=== PATIENT | female | born 1935 | race Caucasian/White ===

== ENCOUNTER 2019-12-07 11:34 | Inpatient (IN) | payer OTHER, SELFPAY ==
[~2019-12-07] VITALS: Ht 160 cm; Wt 71.7 kg
[2019-12-07 11:42] VITALS: BP_SYST 124
[2019-12-07] MEDS ORDERED: ACET-73 PO (11:49)
[2019-12-07] MEDS ORDERED: OMEG-133 PO (11:49)
[2019-12-07] MEDS ORDERED: [UNRECOGNIZED DRUG - CODE] PO (11:49)
[2019-12-07] MEDS ORDERED: [UNRECOGNIZED DRUG - CODE] PO (11:49)
[2019-12-07] MEDS ORDERED: ZINC220T4 PO (11:49)
[2019-12-07] MEDS ORDERED: DONE10TA44 PO (11:49)
[2019-12-07] MEDS ORDERED: ESCI10TA PO (11:49)
[2019-12-07] MEDS ORDERED: MULT1TAB64 PO (11:49)
[2019-12-07] MEDS ORDERED: FAMO1TAB29 PO (11:49)
[2019-12-07] MEDS ORDERED: ROSU20TA2 PO (11:49)
[2019-12-07] MEDS ORDERED: LEVO25TA7 PO (11:49)
[2019-12-07] MEDS ORDERED: MEMA10TA PO (11:49)
[2019-12-07 12:16] LABS: BASOPHILS % (AUTO) 0.2 % (0.0-2.0); HEMATOCRIT 39.4 % (36-48); HEMOGLOBIN 13.2 g/dL (12.0-16.0); LYMPHOCYTES # (AUTO) 0.7 K/uL (1.0-5.5); LYMPHOCYTES % (AUTO) 9.5 % (20.5-51.5); MEAN CORPUSCULAR HEMOGLOBIN 29 pg (27-31); MEAN CORPUSCULAR HGB CONC 33 % (32-36); MEAN CORPUSCULAR VOLUME 85 fL (79.0-98.0); MONOCYTES # (AUTO) 0.2 K/uL (0.0-1.0); MONOCYTES % (AUTO) 3.1 % (1.7-9.3); NEUTROPHILS # (AUTO) 6.6 K/uL (1.8-7.7); NEUTROPHILS % (AUTO) 87.2 % (40.0-70.0); PLATELET COUNT (AUTO) 356 K/uL (130-430); RED BLOOD CELL COUNT(AUTO) 4.62 MIL/uL (4.2-6.2); RED CELL DISTRIBUTION WIDTH 14.7 % (9.0-15.0); WHITE BLOOD COUNT (AUTO) 7.6 K/uL (4.8-10.8)
[2019-12-07 12:23] LABS: ANION GAP 14 (5-15); CALCIUM 8.5 mg/dL (8.4-11.0); CHLORIDE 98 mmol/L (98-107); CREATININE 1.19 mg/dL (0.55-1.30); GLUCOSE 113 mg/dL (70-99); SODIUM SERUM 133 mmol/L (136-145); UREA NITROGEN, BLOOD 24 mg/dL (8-21)
[2019-12-07 12:26] LABS: INR 1.2 (0.8-1.2); PROTHROMBIN TIME 11.8 SECS (9.5-12.5)
[2019-12-07 12:28] LABS: ALANINE AMINOTRANSFERASE 28 U/L (12-78); ALBUMIN 2.4 g/dL (3.4-4.8); ASPARTATE AMINOTRANSFERASE 41 U/L (10-37); TOTAL BILIRUBIN 0.9 mg/dL (0.0-1.0)
[2019-12-07 12:52] LABS: C-REACTIVE PROTEIN QUANT 25.1 mg/dL (0-0.5)
[2019-12-07 13:44] LABS: BILIRUBIN,URINE NEGATIVE (NEGATIVE); BLOOD, URINE NEGATIVE (NEGATIVE); CLARITY/URINE SL CLOUDY (CLEAR); COLOR,URINE YELLOW (YELLOW); GLUCOSE,URINE NEGATIVE (NEGATIVE); KETONES,URINE TRACE (NEGATIVE); LEUKOCYTE ESTERASE ,URINE TRACE (NEGATIVE); NITRITE, URINE NEGATIVE (NEGATIVE); PROTEIN URINE 2+ (NEGATIVE)
[2019-12-07 13:51] LABS: RBC,URINE NONE SEEN /HPF (0-3)
[2019-12-07 13:52] LABS: BACTERIA,URINE None Seen /HPF (None Seen)
[2019-12-07] MEDS ORDERED: AZITHROMYCIN 500 MG in NS 250 ML IV ONE (15:00)
[2019-12-07] MEDS ORDERED: LEVOFLOXACIN 500 MG/D5W 100 ML IV ONE (15:00)
[2019-12-07] MEDS ORDERED: AZITHROMYCIN 500 MG/VIAL (ZITHROMAX) IV ONE (16:34)
[2019-12-07] MEDS ORDERED: guaiFENesin/DEXTROMETHORPHAN 10 ML UDC PO PRN (17:45)
[2019-12-07] MEDS ORDERED: guaiFENesin/DEXTROMETHORPHAN 118 ML PO PRN (17:45)
[2019-12-07] MEDS ORDERED: ACETAMINOPHEN 325 MG TABLET PO PRN (17:45)
[2019-12-07 17:47] VITALS: BP_SYST 136
[2019-12-07] MEDS: ALBUTEROL SULFATE 0.083% 2.5 MG/3 ML VIAL.NEB INH SCH (20:58)
[2019-12-07] MEDS: MEMANTINE HCL 5 MG TABLET PO SCH (21:43)
[2019-12-07] MEDS: DONEPEZIL HCL 5 MG TABLET (ARICEPT) PO SCH (21:43)
[2019-12-08] VITALS (18 sets, daily range): BP systolic 95–152
[2019-12-08] MEDS: ALBUTEROL SULFATE 0.083% 2.5 MG/3 ML VIAL.NEB INH SCH ×4 (01:00→20:05)
[2019-12-08 06:38] LABS: BASOPHILS % (AUTO) 0.2 % (0.0-2.0); EOSINOPHILS % (AUTO) 0.2 % (0.0-4.0); HEMATOCRIT 36.9 % (36-48); HEMOGLOBIN 12.2 g/dL (12.0-16.0); LYMPHOCYTES # (AUTO) 0.7 K/uL (1.0-5.5); LYMPHOCYTES % (AUTO) 10.7 % (20.5-51.5); MEAN CORPUSCULAR HEMOGLOBIN 28 pg (27-31); MEAN CORPUSCULAR HGB CONC 33 % (32-36); MEAN CORPUSCULAR VOLUME 86 fL (79.0-98.0); MONOCYTES # (AUTO) 0.3 K/uL (0.0-1.0); MONOCYTES % (AUTO) 4.8 % (1.7-9.3); NEUTROPHILS # (AUTO) 5.5 K/uL (1.8-7.7); NEUTROPHILS % (AUTO) 84.1 % (40.0-70.0); PLATELET COUNT (AUTO) 358 K/uL (130-430); RED BLOOD CELL COUNT(AUTO) 4.31 MIL/uL (4.2-6.2); RED CELL DISTRIBUTION WIDTH 14.8 % (9.0-15.0); WHITE BLOOD COUNT (AUTO) 6.6 K/uL (4.8-10.8)
[2019-12-08 06:55] LABS: ALANINE AMINOTRANSFERASE 28 U/L (12-78); ALBUMIN 2.1 g/dL (3.4-4.8); ANION GAP 10 (5-15); ASPARTATE AMINOTRANSFERASE 42 U/L (10-37); CALCIUM 8.4 mg/dL (8.4-11.0); CHLORIDE 99 mmol/L (98-107); CREATININE 1.11 mg/dL (0.55-1.30); GLUCOSE 108 mg/dL (70-99); LACTATE DEHYDROGENASE 367 U/L (81-234); POTASSIUM 3.8 mmol/L (3.5-5.1); SODIUM SERUM 133 mmol/L (136-145); THYROID STIMULATING HORMONE 1.92 uIu/mL (0.36-3.74); TOTAL BILIRUBIN 0.9 mg/dL (0.0-1.0); UREA NITROGEN, BLOOD 24 mg/dL (8-21)
[2019-12-08 07:52] LABS: C-REACTIVE PROTEIN QUANT 7.8 mg/dL (0-0.5)
[2019-12-08] MEDS: POTASSIUM CHLORIDE 10 MEQ in NACL 0.9% 1,000 ML IV SCH (09:06)
[2019-12-08] MEDS: LEVOTHYROXINE SODIUM 0.025 MG TABLET PO SCH (10:11)
[2019-12-08] MEDS: MEMANTINE HCL 5 MG TABLET PO SCH ×2 (10:11→19:51)
[2019-12-08] MEDS: cefTRIAXone 1 GM in D5W 50 ML IV SCH (10:11)
[2019-12-08] MEDS: DEXAMETHASONE SOD PHOSPHATE 10 MG/ML VIAL IVP SCH (10:11)
[2019-12-08] MEDS: CITALOPRAM HYDROBROMIDE 20 MG TABLET PO SCH (10:11)
[2019-12-08] MEDS: ENOXAPARIN SODIUM 40 MG/0.4 ML SYRINGE SUBCUT SCH (10:12)
[2019-12-08] MEDS: AZITHROMYCIN 500 MG in NS 250 ML IV SCH (10:29)
[2019-12-08] MEDS ORDERED: FAMOTIDINE 20 MG TABLET PO ONE (13:15)
[2019-12-08] MEDS ORDERED: CHOLECALCIFEROL (VITAMIN D3) 2,000 UNIT TABLET PO ONE (17:30)
[2019-12-08] MEDS: DONEPEZIL HCL 5 MG TABLET (ARICEPT) PO SCH (19:51)
[2019-12-08] MEDS: ASCORBIC ACID 500 MG TABLET PO SCH (19:51)
[2019-12-09] VITALS (24 sets, daily range): BP systolic 139–182
[2019-12-09] MEDS: POTASSIUM CHLORIDE 10 MEQ in NACL 0.9% 1,000 ML IV SCH ×2 (00:47→14:43)
[2019-12-09] MEDS: ALBUTEROL SULFATE 0.083% 2.5 MG/3 ML VIAL.NEB INH SCH ×3 (01:36→13:47)
[2019-12-09 06:47] LABS: BASOPHILS % (AUTO) 0.2 % (0.0-2.0); HEMATOCRIT 35.8 % (36-48); HEMOGLOBIN 11.9 g/dL (12.0-16.0); LYMPHOCYTES # (AUTO) 0.7 K/uL (1.0-5.5); LYMPHOCYTES % (AUTO) 10.5 % (20.5-51.5); MEAN CORPUSCULAR HEMOGLOBIN 29 pg (27-31); MEAN CORPUSCULAR HGB CONC 33 % (32-36); MEAN CORPUSCULAR VOLUME 86 fL (79.0-98.0); MONOCYTES # (AUTO) 0.3 K/uL (0.0-1.0); MONOCYTES % (AUTO) 4.3 % (1.7-9.3); PLATELET COUNT (AUTO) 402 K/uL (130-430); RED BLOOD CELL COUNT(AUTO) 4.17 MIL/uL (4.2-6.2); RED CELL DISTRIBUTION WIDTH 14.4 % (9.0-15.0); WHITE BLOOD COUNT (AUTO) 7.1 K/uL (4.8-10.8)
[2019-12-09 07:40] LABS: ANION GAP 8 (5-15); ASPARTATE AMINOTRANSFERASE 52 U/L (10-37); CALCIUM 8.4 mg/dL (8.4-11.0); CHLORIDE 105 mmol/L (98-107); CREATININE 0.81 mg/dL (0.55-1.30); GLUCOSE 127 mg/dL (70-99); LACTATE DEHYDROGENASE 327 U/L (81-234); POTASSIUM 4.1 mmol/L (3.5-5.1); SODIUM SERUM 136 mmol/L (136-145); TOTAL BILIRUBIN 0.6 mg/dL (0.0-1.0); UREA NITROGEN, BLOOD 24 mg/dL (8-21)
[2019-12-09 07:41] LABS: ALANINE AMINOTRANSFERASE 44 U/L (12-78)
[2019-12-09 07:50] LABS: C-REACTIVE PROTEIN QUANT 12.9 mg/dL (0-0.5)
[2019-12-09] MEDS: cefTRIAXone 1 GM in D5W 50 ML IV SCH (08:53)
[2019-12-09] MEDS: DEXAMETHASONE SOD PHOSPHATE 10 MG/ML VIAL IVP SCH (08:54)
[2019-12-09] MEDS: CHOLECALCIFEROL (VITAMIN D3) 2,000 UNIT TABLET PO SCH (08:55)
[2019-12-09] MEDS: MEMANTINE HCL 5 MG TABLET PO SCH ×2 (08:55→20:30)
[2019-12-09] MEDS: ASCORBIC ACID 500 MG TABLET PO SCH ×2 (08:55→20:31)
[2019-12-09] MEDS: CITALOPRAM HYDROBROMIDE 20 MG TABLET PO SCH (08:55)
[2019-12-09] MEDS: LEVOTHYROXINE SODIUM 0.025 MG TABLET PO SCH (08:55)
[2019-12-09] MEDS: FAMOTIDINE 20 MG TABLET PO SCH (08:55)
[2019-12-09] MEDS: ENOXAPARIN SODIUM 40 MG/0.4 ML SYRINGE SUBCUT SCH (08:56)
[2019-12-09] MEDS: AZITHROMYCIN 500 MG in NS 250 ML IV SCH (08:57)
[2019-12-09] MEDS ORDERED: LORazepam 2 MG/ML VIAL ONE (17:23)
[2019-12-09] MEDS: ALBUTEROL MDI INHALATION 8 GM INH INH SCH (19:00)
[2019-12-09] MEDS: DONEPEZIL HCL 5 MG TABLET (ARICEPT) PO SCH (20:30)
[2019-12-10] VITALS (23 sets, daily range): BP systolic 119–177
[2019-12-10] MEDS: ALBUTEROL MDI INHALATION 8 GM INH INH SCH ×4 (01:00→20:00)
[2019-12-10] MEDS: POTASSIUM CHLORIDE 10 MEQ in NACL 0.9% 1,000 ML IV SCH ×2 (04:12→18:34)
[2019-12-10 06:18] LABS: BASOPHILS % (AUTO) 0.1 % (0.0-2.0); EOSINOPHILS % (AUTO) 0.1 % (0.0-4.0); HEMATOCRIT 34.6 % (36-48); HEMOGLOBIN 11.4 g/dL (12.0-16.0); LYMPHOCYTES # (AUTO) 1.1 K/uL (1.0-5.5); LYMPHOCYTES % (AUTO) 9.3 % (20.5-51.5); MEAN CORPUSCULAR HEMOGLOBIN 28 pg (27-31); MEAN CORPUSCULAR HGB CONC 33 % (32-36); MEAN CORPUSCULAR VOLUME 86 fL (79.0-98.0); MONOCYTES # (AUTO) 0.5 K/uL (0.0-1.0); MONOCYTES % (AUTO) 4.1 % (1.7-9.3); NEUTROPHILS # (AUTO) 10.1 K/uL (1.8-7.7); NEUTROPHILS % (AUTO) 86.4 % (40.0-70.0); PLATELET COUNT (AUTO) 412 K/uL (130-430); RED BLOOD CELL COUNT(AUTO) 4.04 MIL/uL (4.2-6.2); RED CELL DISTRIBUTION WIDTH 14.6 % (9.0-15.0); WHITE BLOOD COUNT (AUTO) 11.7 K/uL (4.8-10.8)
[2019-12-10] MEDS: LORazepam 2 MG/ML VIAL IVP PRN (06:41)
[2019-12-10 06:57] LABS: ALANINE AMINOTRANSFERASE 37 U/L (12-78); ANION GAP 7 (5-15); ASPARTATE AMINOTRANSFERASE 41 U/L (10-37); BILIRUBIN,DIRECT 0.1 mg/dL (0.0-0.3); C-REACTIVE PROTEIN QUANT 4.8 mg/dL (0-0.5); CALCIUM 8.7 mg/dL (8.4-11.0); CHLORIDE 102 mmol/L (98-107); CREATININE 0.73 mg/dL (0.55-1.30); GLUCOSE 104 mg/dL (70-99); LACTATE DEHYDROGENASE 441 U/L (81-234); SODIUM SERUM 133 mmol/L (136-145); TOTAL BILIRUBIN 0.7 mg/dL (0.0-1.0); UREA NITROGEN, BLOOD 22 mg/dL (8-21)
[2019-12-10] MEDS: MEMANTINE HCL 5 MG TABLET PO SCH ×2 (09:16→21:00)
[2019-12-10] MEDS: cefTRIAXone 1 GM in D5W 50 ML IV SCH (09:16)
[2019-12-10] MEDS: DEXAMETHASONE SOD PHOSPHATE 10 MG/ML VIAL IVP SCH (09:16)
[2019-12-10] MEDS: CITALOPRAM HYDROBROMIDE 20 MG TABLET PO SCH (09:16)
[2019-12-10] MEDS: FAMOTIDINE 20 MG TABLET PO SCH (09:17)
[2019-12-10] MEDS: LEVOTHYROXINE SODIUM 0.025 MG TABLET PO SCH (09:17)
[2019-12-10] MEDS: ENOXAPARIN SODIUM 40 MG/0.4 ML SYRINGE SUBCUT SCH (09:17)
[2019-12-10] MEDS: CHOLECALCIFEROL (VITAMIN D3) 2,000 UNIT TABLET PO SCH (09:17)
[2019-12-10] MEDS: ASCORBIC ACID 500 MG TABLET PO SCH ×2 (09:17→21:00)
[2019-12-10] MEDS: AZITHROMYCIN 500 MG in NS 250 ML IV SCH (09:19)
[2019-12-10] MEDS ORDERED: DIPHENHYDRAMINE INJ 50 MG/ML VIAL IVP ONE (15:00)
[2019-12-10] MEDS ORDERED: DIPHENHYDRAMINE INJ 50 MG/ML VIAL ONE (15:26)
[2019-12-10] MEDS: DONEPEZIL HCL 5 MG TABLET (ARICEPT) PO SCH (21:00)
[2019-12-11] VITALS (28 sets, daily range): BP systolic 78–187
[2019-12-11] MEDS: ALBUTEROL MDI INHALATION 8 GM INH INH SCH ×4 (01:31→20:25)
[2019-12-11] MEDS: POTASSIUM CHLORIDE 10 MEQ in NACL 0.9% 1,000 ML IV SCH ×2 (03:00→22:38)
[2019-12-11 06:45] LABS: ALANINE AMINOTRANSFERASE 31 U/L (12-78); ALBUMIN 1.8 g/dL (3.4-4.8); ANION GAP 6 (5-15); ASPARTATE AMINOTRANSFERASE 31 U/L (10-37); C-REACTIVE PROTEIN QUANT 11.3 mg/dL (0-0.5); CALCIUM 8.3 mg/dL (8.4-11.0); CHLORIDE 105 mmol/L (98-107); CREATININE 0.85 mg/dL (0.55-1.30); GLUCOSE 99 mg/dL (70-99); POTASSIUM 3.8 mmol/L (3.5-5.1); SODIUM SERUM 135 mmol/L (136-145); TOTAL BILIRUBIN 0.7 mg/dL (0.0-1.0); UREA NITROGEN, BLOOD 20 mg/dL (8-21)
[2019-12-11 06:47] LABS: BASOPHILS % (AUTO) 0.1 % (0.0-2.0); HEMATOCRIT 33.5 % (36-48); HEMOGLOBIN 10.8 g/dL (12.0-16.0); LYMPHOCYTES # (AUTO) 0.9 K/uL (1.0-5.5); LYMPHOCYTES % (AUTO) 7.4 % (20.5-51.5); MEAN CORPUSCULAR HEMOGLOBIN 28 pg (27-31); MEAN CORPUSCULAR HGB CONC 32 % (32-36); MEAN CORPUSCULAR VOLUME 86 fL (79.0-98.0); MONOCYTES # (AUTO) 0.5 K/uL (0.0-1.0); MONOCYTES % (AUTO) 3.8 % (1.7-9.3); NEUTROPHILS % (AUTO) 88.7 % (40.0-70.0); PLATELET COUNT (AUTO) 438 K/uL (130-430); RED BLOOD CELL COUNT(AUTO) 3.89 MIL/uL (4.2-6.2); RED CELL DISTRIBUTION WIDTH 14.7 % (9.0-15.0); WHITE BLOOD COUNT (AUTO) 12.4 K/uL (4.8-10.8)
[2019-12-11] MEDS: cefTRIAXone 1 GM in D5W 50 ML IV SCH (09:13)
[2019-12-11] MEDS: ASCORBIC ACID 500 MG TABLET PO SCH ×2 (09:14→21:00)
[2019-12-11] MEDS: CITALOPRAM HYDROBROMIDE 20 MG TABLET PO SCH (09:14)
[2019-12-11] MEDS: FAMOTIDINE 20 MG TABLET PO SCH (09:14)
[2019-12-11] MEDS: LEVOTHYROXINE SODIUM 0.025 MG TABLET PO SCH (09:14)
[2019-12-11] MEDS: CHOLECALCIFEROL (VITAMIN D3) 2,000 UNIT TABLET PO SCH (09:14)
[2019-12-11] MEDS: MEMANTINE HCL 5 MG TABLET PO SCH ×2 (09:14→21:00)
[2019-12-11] MEDS: DEXAMETHASONE SOD PHOSPHATE 10 MG/ML VIAL IVP SCH (09:14)
[2019-12-11] MEDS: ENOXAPARIN SODIUM 40 MG/0.4 ML SYRINGE SUBCUT SCH (09:15)
[2019-12-11] MEDS: LORazepam 2 MG/ML VIAL IVP PRN (09:31)
[2019-12-11] MEDS: AZITHROMYCIN 500 MG in NS 250 ML IV SCH (10:00)
[2019-12-11] MEDS ORDERED: HEPARIN SODIUM,PORCINE 3000 UNITS/0.6 ML BOLUS IVP PRN (11:45)
[2019-12-11] MEDS ORDERED: HEPARIN SODIUM,PORCINE 2000 UNITS/0.4 ML BOLUS IVP PRN (11:45)
[2019-12-11] MEDS ORDERED: ROCURONIUM BROMIDE 10 MG/ML (ZEMURON) IV ONE (14:00)
[2019-12-11] MEDS ORDERED: FUROSEMIDE 20 MG/2 ML VIAL IVP ONE (14:00)
[2019-12-11] MEDS ORDERED: ETOMIDATE 20 MG/ 10 ML VIAL (AMIDATE) IVP ONE (14:00)
[2019-12-11] MEDS ORDERED: NALOXONE HCL 0.4 MG/ML AMP (NARCAN) IVP PRN (14:00)
[2019-12-11] MEDS: PROPOFOL DRIP 100 ML IV PRN (15:21)
[2019-12-11] MEDS: HEPARIN 25,000 UNITS/D5W 250ML 250 ML IV PRN (15:24)
[2019-12-11 17:26] LABS: INR 1.2 (0.8-1.2); PROTHROMBIN TIME 11.6 SECS (9.5-12.5)
[2019-12-11] MEDS: DONEPEZIL HCL 5 MG TABLET (ARICEPT) PO SCH (21:00)
[2019-12-12] VITALS (36 sets, daily range): BP systolic 85–146
[2019-12-12] MEDS: MORPHINE I.V. DRIP 100 ML IV PRN ×2 (00:11→17:25)
[2019-12-12] MEDS: ALBUTEROL MDI INHALATION 8 GM INH INH SCH ×4 (01:54→19:45)
[2019-12-12] MEDS: PROPOFOL DRIP 100 ML IV PRN ×4 (02:52→19:03)
[2019-12-12 06:28] LABS: BASOPHILS % (AUTO) 0.1 % (0.0-2.0); EOSINOPHILS % (AUTO) 0.2 % (0.0-4.0); HEMATOCRIT 31.7 % (36-48); HEMOGLOBIN 10.4 g/dL (12.0-16.0); LYMPHOCYTES % (AUTO) 5.4 % (20.5-51.5); MEAN CORPUSCULAR HEMOGLOBIN 28 pg (27-31); MEAN CORPUSCULAR HGB CONC 33 % (32-36); MEAN CORPUSCULAR VOLUME 86 fL (79.0-98.0); MONOCYTES # (AUTO) 0.4 K/uL (0.0-1.0); MONOCYTES % (AUTO) 2.3 % (1.7-9.3); PLATELET COUNT (AUTO) 409 K/uL (130-430); RED BLOOD CELL COUNT(AUTO) 3.67 MIL/uL (4.2-6.2); RED CELL DISTRIBUTION WIDTH 14.8 % (9.0-15.0); WHITE BLOOD COUNT (AUTO) 18.5 K/uL (4.8-10.8)
[2019-12-12 07:19] LABS: ALANINE AMINOTRANSFERASE 51 U/L (12-78); ALBUMIN 1.9 g/dL (3.4-4.8); ANION GAP 11 (5-15); CALCIUM 8.2 mg/dL (8.4-11.0); CHLORIDE 102 mmol/L (98-107); CREATININE 1.04 mg/dL (0.55-1.30); GLUCOSE 117 mg/dL (70-99); SODIUM SERUM 138 mmol/L (136-145); TOTAL BILIRUBIN 0.7 mg/dL (0.0-1.0); UREA NITROGEN, BLOOD 22 mg/dL (8-21)
[2019-12-12 07:42] LABS: ASPARTATE AMINOTRANSFERASE 62 U/L (10-37)
[2019-12-12 08:41] LABS: C-REACTIVE PROTEIN QUANT 23.3 mg/dL (0-0.5)
[2019-12-12] MEDS: AZITHROMYCIN 500 MG in NS 250 ML IV SCH (08:58)
[2019-12-12] MEDS: cefTRIAXone 1 GM in D5W 50 ML IV SCH (08:58)
[2019-12-12] MEDS: MEMANTINE HCL 5 MG TABLET PO SCH ×2 (09:56→21:50)
[2019-12-12] MEDS: DEXAMETHASONE SOD PHOSPHATE 10 MG/ML VIAL IVP SCH (09:56)
[2019-12-12] MEDS: CHOLECALCIFEROL (VITAMIN D3) 2,000 UNIT TABLET PO SCH (09:57)
[2019-12-12] MEDS: CITALOPRAM HYDROBROMIDE 20 MG TABLET PO SCH (09:57)
[2019-12-12] MEDS: FAMOTIDINE 20 MG TABLET PO SCH (09:58)
[2019-12-12] MEDS: ASCORBIC ACID 500 MG TABLET PO SCH ×2 (09:58→21:50)
[2019-12-12] MEDS: LEVOTHYROXINE SODIUM 0.025 MG TABLET PO SCH (09:58)
[2019-12-12] MEDS ORDERED: NOREPINEPHRINE BITARTRATE 32 MG in NS 218 ML IV PRN (10:30)
[2019-12-12] MEDS: NOREPINEPHRINE BITARTRATE 4 MG in NS 246 ML IV PRN (12:17)
[2019-12-12] MEDS: POTASSIUM CHLORIDE 10 MEQ in NACL 0.9% 1,000 ML IV SCH (13:48)
[2019-12-12] MEDS ORDERED: NS 250 ML IV ONE (18:15)
[2019-12-12] MEDS: DONEPEZIL HCL 5 MG TABLET (ARICEPT) PO SCH (21:50)
[2019-12-13] VITALS (35 sets, daily range): BP systolic 106–150
[2019-12-13] MEDS: PROPOFOL DRIP 100 ML IV PRN ×4 (01:23→23:43)
[2019-12-13] MEDS: POTASSIUM CHLORIDE 10 MEQ in NACL 0.9% 1,000 ML IV SCH (01:24)
[2019-12-13] MEDS: ALBUTEROL MDI INHALATION 8 GM INH INH SCH ×4 (02:02→19:20)
[2019-12-13 06:24] LABS: HEMATOCRIT 30.1 % (36-48); HEMOGLOBIN 9.5 g/dL (12.0-16.0); LYMPHOCYTES # (AUTO) 0.7 K/uL (1.0-5.5); LYMPHOCYTES % (AUTO) 4.7 % (20.5-51.5); MEAN CORPUSCULAR HEMOGLOBIN 28 pg (27-31); MEAN CORPUSCULAR HGB CONC 32 % (32-36); MEAN CORPUSCULAR VOLUME 89 fL (79.0-98.0); MONOCYTES # (AUTO) 0.3 K/uL (0.0-1.0); MONOCYTES % (AUTO) 2.2 % (1.7-9.3); NEUTROPHILS # (AUTO) 13.6 K/uL (1.8-7.7); NEUTROPHILS % (AUTO) 93.1 % (40.0-70.0); PLATELET COUNT (AUTO) 350 K/uL (130-430); RED BLOOD CELL COUNT(AUTO) 3.39 MIL/uL (4.2-6.2); RED CELL DISTRIBUTION WIDTH 15.3 % (9.0-15.0); WHITE BLOOD COUNT (AUTO) 14.6 K/uL (4.8-10.8)
[2019-12-13 06:47] LABS: ALANINE AMINOTRANSFERASE 37 U/L (12-78); ALBUMIN 1.6 g/dL (3.4-4.8); ANION GAP 7 (5-15); CALCIUM 8.2 mg/dL (8.4-11.0); CHLORIDE 102 mmol/L (98-107); CREATININE 2.94 mg/dL (0.55-1.30); GLUCOSE 160 mg/dL (70-99); POTASSIUM 5.5 mmol/L (3.5-5.1); SODIUM SERUM 133 mmol/L (136-145); TOTAL BILIRUBIN 0.3 mg/dL (0.0-1.0); UREA NITROGEN, BLOOD 42 mg/dL (8-21)
[2019-12-13 08:02] LABS: ASPARTATE AMINOTRANSFERASE 30 U/L (10-37)
[2019-12-13] MEDS ORDERED: SODIUM POLYSTYRENE SULFONATE 15 GM/60 ML UDBTL NG ONE (08:45)
[2019-12-13] MEDS: CHOLECALCIFEROL (VITAMIN D3) 2,000 UNIT TABLET PO SCH (08:56)
[2019-12-13] MEDS: DEXAMETHASONE SOD PHOSPHATE 10 MG/ML VIAL IVP SCH (08:56)
[2019-12-13] MEDS: LEVOTHYROXINE SODIUM 0.025 MG TABLET PO SCH (08:57)
[2019-12-13] MEDS: MEMANTINE HCL 5 MG TABLET PO SCH ×2 (08:57→21:51)
[2019-12-13] MEDS: ASCORBIC ACID 500 MG TABLET PO SCH ×2 (08:57→21:51)
[2019-12-13] MEDS: CITALOPRAM HYDROBROMIDE 20 MG TABLET PO SCH (08:57)
[2019-12-13] MEDS: FAMOTIDINE 20 MG TABLET PO SCH (08:57)
[2019-12-13] MEDS: cefTRIAXone 1 GM in D5W 50 ML IV SCH (08:58)
[2019-12-13 09:18] LABS: C-REACTIVE PROTEIN QUANT 20.7 mg/dL (0-0.5)
[2019-12-13] MEDS: HEPARIN 25,000 UNITS/D5W 250ML 250 ML IV PRN (12:22)
[2019-12-13] MEDS: MORPHINE I.V. DRIP 100 ML IV PRN (12:24)
[2019-12-13] MEDS ORDERED: ALBUMIN HUMAN 25% 50 ML IV ONE (13:00)
[2019-12-13] MEDS: NACL 0.9% 1,000 ML IV SCH ×2 (13:10→21:51)
[2019-12-13] MEDS ORDERED: NS 500 ML IV ONE (13:45)
[2019-12-13] MEDS: DONEPEZIL HCL 5 MG TABLET (ARICEPT) PO SCH (21:50)
[2019-12-14] VITALS (34 sets, daily range): BP systolic 104–177
[2019-12-14] MEDS: ALBUTEROL MDI INHALATION 8 GM INH INH SCH ×4 (01:00→19:52)
[2019-12-14 05:58] LABS: ALANINE AMINOTRANSFERASE 29 U/L (12-78); ALBUMIN 1.9 g/dL (3.4-4.8); ANION GAP 13 (5-15); ASPARTATE AMINOTRANSFERASE 19 U/L (10-37); CALCIUM 7.5 mg/dL (8.4-11.0); CHLORIDE 103 mmol/L (98-107); CREATININE 4.04 mg/dL (0.55-1.30); GLUCOSE 180 mg/dL (70-99); POTASSIUM 4.9 mmol/L (3.5-5.1); SODIUM SERUM 135 mmol/L (136-145); TOTAL BILIRUBIN 0.4 mg/dL (0.0-1.0); UREA NITROGEN, BLOOD 55 mg/dL (8-21)
[2019-12-14 06:49] LABS: C-REACTIVE PROTEIN QUANT 16.6 mg/dL (0-0.5)
[2019-12-14] MEDS: PROPOFOL DRIP 100 ML IV PRN ×2 (07:10→18:08)
[2019-12-14 08:25] LABS: BASOPHILS % (AUTO) 0.1 % (0.0-2.0); EOSINOPHILS % (AUTO) 0.1 % (0.0-4.0); HEMATOCRIT 29.3 % (36-48); HEMOGLOBIN 9.2 g/dL (12.0-16.0); LYMPHOCYTES # (AUTO) 0.6 K/uL (1.0-5.5); LYMPHOCYTES % (AUTO) 5.7 % (20.5-51.5); MEAN CORPUSCULAR HEMOGLOBIN 28 pg (27-31); MEAN CORPUSCULAR HGB CONC 32 % (32-36); MEAN CORPUSCULAR VOLUME 90 fL (79.0-98.0); MONOCYTES # (AUTO) 0.3 K/uL (0.0-1.0); MONOCYTES % (AUTO) 2.7 % (1.7-9.3); NEUTROPHILS # (AUTO) 9.3 K/uL (1.8-7.7); NEUTROPHILS % (AUTO) 91.4 % (40.0-70.0); PLATELET COUNT (AUTO) 354 K/uL (130-430); RED BLOOD CELL COUNT(AUTO) 3.27 MIL/uL (4.2-6.2); RED CELL DISTRIBUTION WIDTH 16.1 % (9.0-15.0); WHITE BLOOD COUNT (AUTO) 10.1 K/uL (4.8-10.8)
[2019-12-14] MEDS: DEXAMETHASONE SOD PHOSPHATE 10 MG/ML VIAL IVP SCH (09:00)
[2019-12-14] MEDS: cefTRIAXone 1 GM in D5W 50 ML IV SCH (09:00)
[2019-12-14] MEDS: CHOLECALCIFEROL (VITAMIN D3) 2,000 UNIT TABLET PO SCH (09:00)
[2019-12-14] MEDS: LEVOTHYROXINE SODIUM 0.025 MG TABLET PO SCH (09:00)
[2019-12-14] MEDS: CITALOPRAM HYDROBROMIDE 20 MG TABLET PO SCH (09:00)
[2019-12-14] MEDS: FAMOTIDINE 20 MG TABLET PO SCH (09:00)
[2019-12-14] MEDS: MEMANTINE HCL 5 MG TABLET PO SCH ×2 (09:00→20:39)
[2019-12-14] MEDS: ASCORBIC ACID 500 MG TABLET PO SCH ×2 (09:00→20:39)
[2019-12-14] MEDS: MORPHINE I.V. DRIP 100 ML IV PRN (10:48)
[2019-12-14] MEDS: DONEPEZIL HCL 5 MG TABLET (ARICEPT) PO SCH (20:39)
[2019-12-15] VITALS (31 sets, daily range): BP systolic 112–164
[2019-12-15] MEDS: ALBUTEROL MDI INHALATION 8 GM INH INH SCH ×4 (01:00→19:00)
[2019-12-15] MEDS: HEPARIN 25,000 UNITS/D5W 250ML 250 ML IV PRN (03:49)
[2019-12-15 06:11] LABS: ALANINE AMINOTRANSFERASE 27 U/L (12-78); ALBUMIN 2.2 g/dL (3.4-4.8); ANION GAP 14 (5-15); ASPARTATE AMINOTRANSFERASE 21 U/L (10-37); CHLORIDE 101 mmol/L (98-107); CREATININE 5.32 mg/dL (0.55-1.30); GLUCOSE 85 mg/dL (70-99); POTASSIUM 5.6 mmol/L (3.5-5.1); SODIUM SERUM 134 mmol/L (136-145); TOTAL BILIRUBIN 0.4 mg/dL (0.0-1.0); UREA NITROGEN, BLOOD 65 mg/dL (8-21)
[2019-12-15] MEDS: MEMANTINE HCL 5 MG TABLET PO SCH ×2 (07:51→21:29)
[2019-12-15] MEDS: LEVOTHYROXINE SODIUM 0.025 MG TABLET PO SCH (07:51)
[2019-12-15] MEDS: FAMOTIDINE 20 MG TABLET PO SCH (07:51)
[2019-12-15] MEDS: CITALOPRAM HYDROBROMIDE 20 MG TABLET PO SCH (07:52)
[2019-12-15] MEDS: CHOLECALCIFEROL (VITAMIN D3) 2,000 UNIT TABLET PO SCH (07:52)
[2019-12-15] MEDS: ASCORBIC ACID 500 MG TABLET PO SCH ×2 (07:52→21:29)
[2019-12-15] MEDS: DEXAMETHASONE SOD PHOSPHATE 10 MG/ML VIAL IVP SCH (07:52)
[2019-12-15] MEDS: cefTRIAXone 1 GM in D5W 50 ML IV SCH (07:52)
[2019-12-15 07:56] LABS: C-REACTIVE PROTEIN QUANT 17.1 mg/dL (0-0.5)
[2019-12-15 08:28] LABS: BASOPHILS % (AUTO) 0.1 % (0.0-2.0); EOSINOPHILS # (AUTO) 0.1 K/uL (0.0-0.4); EOSINOPHILS % (AUTO) 0.9 % (0.0-4.0); HEMATOCRIT 34.1 % (36-48); HEMOGLOBIN 10.6 g/dL (12.0-16.0); LYMPHOCYTES # (AUTO) 0.9 K/uL (1.0-5.5); LYMPHOCYTES % (AUTO) 5.7 % (20.5-51.5); MEAN CORPUSCULAR HEMOGLOBIN 28 pg (27-31); MEAN CORPUSCULAR HGB CONC 31 % (32-36); MEAN CORPUSCULAR VOLUME 90 fL (79.0-98.0); MONOCYTES # (AUTO) 0.8 K/uL (0.0-1.0); NEUTROPHILS # (AUTO) 13.6 K/uL (1.8-7.7); NEUTROPHILS % (AUTO) 88.3 % (40.0-70.0); PLATELET COUNT (AUTO) 467 K/uL (130-430); RED BLOOD CELL COUNT(AUTO) 3.81 MIL/uL (4.2-6.2); RED CELL DISTRIBUTION WIDTH 16.7 % (9.0-15.0); WHITE BLOOD COUNT (AUTO) 15.5 K/uL (4.8-10.8)
[2019-12-15] MEDS ORDERED: SODIUM POLYSTYRENE SULFONATE 15 GM/60 ML UDBTL PO ONE (09:00)
[2019-12-15] MEDS ORDERED: COMMUNICATION ORDER XX ONE (09:15)
[2019-12-15] MEDS ORDERED: HEPARIN SODIUM,PORCINE 5000 UNITS/ML VIAL ONE (11:24)
[2019-12-15] MEDS ORDERED: HEPARIN SODIUM, PORCINE 10,000 UNITS/ 10 ML VIAL MC ONE (12:15)
[2019-12-15] MEDS: [UNRECOGNIZED DRUG - OTHER] IV PRN (13:00)
[2019-12-15] MEDS: NS IV PRN (13:00)
[2019-12-15] MEDS: PIPERACILLIN/TAZO 2.25G/DEX-IS 50 ML IV SCH ×2 (14:06→22:27)
[2019-12-15] MEDS: DOCUSATE SODIUM 100 MG/10 ML UDC PO SCH (21:29)
[2019-12-15] MEDS: DONEPEZIL HCL 5 MG TABLET (ARICEPT) PO SCH (21:29)
[2019-12-15] MEDS: SENNA 8.8 MG/5 ML UDC GT SCH (21:34)
[2019-12-15] MEDS: PROPOFOL DRIP 100 ML IV PRN (22:29)
[2019-12-16] VITALS (36 sets, daily range): BP systolic 107–167
[2019-12-16] MEDS: ALBUTEROL MDI INHALATION 8 GM INH INH SCH ×3 (01:26→19:00)
[2019-12-16 05:19] LABS: BASOPHILS % (AUTO) 0.1 % (0.0-2.0); EOSINOPHILS # (AUTO) 0.3 K/uL (0.0-0.4); EOSINOPHILS % (AUTO) 2.2 % (0.0-4.0); HEMATOCRIT 28.1 % (36-48); HEMOGLOBIN 9.1 g/dL (12.0-16.0); LYMPHOCYTES # (AUTO) 0.6 K/uL (1.0-5.5); LYMPHOCYTES % (AUTO) 5.2 % (20.5-51.5); MEAN CORPUSCULAR HEMOGLOBIN 28 pg (27-31); MEAN CORPUSCULAR HGB CONC 32 % (32-36); MEAN CORPUSCULAR VOLUME 86 fL (79.0-98.0); MONOCYTES # (AUTO) 0.4 K/uL (0.0-1.0); MONOCYTES % (AUTO) 3.5 % (1.7-9.3); NEUTROPHILS # (AUTO) 10.8 K/uL (1.8-7.7); PLATELET COUNT (AUTO) 357 K/uL (130-430); RED BLOOD CELL COUNT(AUTO) 3.25 MIL/uL (4.2-6.2); RED CELL DISTRIBUTION WIDTH 15.3 % (9.0-15.0); WHITE BLOOD COUNT (AUTO) 12.1 K/uL (4.8-10.8)
[2019-12-16 05:23] LABS: ALANINE AMINOTRANSFERASE 21 U/L (12-78); ALBUMIN 1.8 g/dL (3.4-4.8); ANION GAP 12 (5-15); ASPARTATE AMINOTRANSFERASE 23 U/L (10-37); CALCIUM 7.8 mg/dL (8.4-11.0); CHLORIDE 98 mmol/L (98-107); GLUCOSE 101 mg/dL (70-99); POTASSIUM 4.1 mmol/L (3.5-5.1); SODIUM SERUM 135 mmol/L (136-145); TOTAL BILIRUBIN 0.5 mg/dL (0.0-1.0); UREA NITROGEN, BLOOD 53 mg/dL (8-21)
[2019-12-16 05:39] LABS: C-REACTIVE PROTEIN QUANT 18.5 mg/dL (0-0.5)
[2019-12-16] MEDS: PIPERACILLIN/TAZO 2.25G/DEX-IS 50 ML IV SCH ×3 (06:03→21:46)
[2019-12-16] MEDS: LEVOTHYROXINE SODIUM 0.025 MG TABLET PO SCH (07:50)
[2019-12-16] MEDS: CITALOPRAM HYDROBROMIDE 20 MG TABLET PO SCH (07:50)
[2019-12-16] MEDS: CHOLECALCIFEROL (VITAMIN D3) 2,000 UNIT TABLET PO SCH (07:50)
[2019-12-16] MEDS: DOCUSATE SODIUM 100 MG/10 ML UDC PO SCH ×2 (07:50→21:46)
[2019-12-16] MEDS: ASCORBIC ACID 500 MG TABLET PO SCH ×2 (07:50→21:46)
[2019-12-16] MEDS: FAMOTIDINE 20 MG TABLET PO SCH (07:50)
[2019-12-16] MEDS: MEMANTINE HCL 5 MG TABLET PO SCH ×2 (07:50→21:46)
[2019-12-16] MEDS: DEXAMETHASONE SOD PHOSPHATE 10 MG/ML VIAL IVP SCH (07:50)
[2019-12-16] MEDS: HEPARIN 25,000 UNITS/D5W 250ML 250 ML IV PRN (08:26)
[2019-12-16] MEDS ORDERED: BISACODYL 10 MG/SUPPOSITORY RC PRN (09:30)
[2019-12-16] MEDS: PROPOFOL DRIP 100 ML IV PRN (11:12)
[2019-12-16] MEDS: NS IV PRN (16:38)
[2019-12-16] MEDS: [UNRECOGNIZED DRUG - OTHER] IV PRN (16:38)
[2019-12-16] MEDS: SENNA 8.8 MG/5 ML UDC GT SCH (21:46)
[2019-12-16] MEDS: DONEPEZIL HCL 5 MG TABLET (ARICEPT) PO SCH (21:46)
[2019-12-17] VITALS (34 sets, daily range): BP systolic 129–194
[2019-12-17] MEDS: PROPOFOL DRIP 100 ML IV PRN (01:20)
[2019-12-17] MEDS: PIPERACILLIN/TAZO 2.25G/DEX-IS 50 ML IV SCH ×3 (05:42→21:02)
[2019-12-17 06:46] LABS: BASOPHILS % (AUTO) 0.2 % (0.0-2.0); EOSINOPHILS # (AUTO) 0.4 K/uL (0.0-0.4); EOSINOPHILS % (AUTO) 2.4 % (0.0-4.0); HEMATOCRIT 28.2 % (36-48); HEMOGLOBIN 9.4 g/dL (12.0-16.0); LYMPHOCYTES # (AUTO) 0.9 K/uL (1.0-5.5); LYMPHOCYTES % (AUTO) 5.2 % (20.5-51.5); MEAN CORPUSCULAR HEMOGLOBIN 29 pg (27-31); MEAN CORPUSCULAR HGB CONC 33 % (32-36); MEAN CORPUSCULAR VOLUME 86 fL (79.0-98.0); MONOCYTES # (AUTO) 0.3 K/uL (0.0-1.0); MONOCYTES % (AUTO) 1.9 % (1.7-9.3); NEUTROPHILS # (AUTO) 16.2 K/uL (1.8-7.7); NEUTROPHILS % (AUTO) 90.3 % (40.0-70.0); PLATELET COUNT (AUTO) 297 K/uL (130-430); RED BLOOD CELL COUNT(AUTO) 3.27 MIL/uL (4.2-6.2); RED CELL DISTRIBUTION WIDTH 15.6 % (9.0-15.0); WHITE BLOOD COUNT (AUTO) 17.9 K/uL (4.8-10.8)
[2019-12-17 06:49] LABS: ANION GAP 14 (5-15); CHLORIDE 90 mmol/L (98-107); CREATININE 6.03 mg/dL (0.55-1.30); GLUCOSE 116 mg/dL (70-99); POTASSIUM 3.9 mmol/L (3.5-5.1); SODIUM SERUM 125 mmol/L (136-145); UREA NITROGEN, BLOOD 68 mg/dL (8-21)
[2019-12-17] MEDS: ALBUTEROL MDI INHALATION 8 GM INH INH SCH ×2 (08:19→13:45)
[2019-12-17] MEDS: LEVOTHYROXINE SODIUM 0.025 MG TABLET PO SCH (08:52)
[2019-12-17] MEDS: DEXAMETHASONE SOD PHOSPHATE 10 MG/ML VIAL IVP SCH (08:52)
[2019-12-17] MEDS: DOCUSATE SODIUM 100 MG/10 ML UDC PO SCH ×2 (08:52→21:01)
[2019-12-17] MEDS: ASCORBIC ACID 500 MG TABLET PO SCH ×2 (08:52→21:01)
[2019-12-17] MEDS: CHOLECALCIFEROL (VITAMIN D3) 2,000 UNIT TABLET PO SCH (08:52)
[2019-12-17] MEDS: FAMOTIDINE 20 MG TABLET PO SCH (08:52)
[2019-12-17] MEDS: MEMANTINE HCL 5 MG TABLET PO SCH ×2 (08:52→21:01)
[2019-12-17] MEDS: CITALOPRAM HYDROBROMIDE 20 MG TABLET PO SCH (08:52)
[2019-12-17] MEDS: ENALAPRILAT DIHYDRATE 1.25 MG/ML VIAL IVP PRN ×2 (10:42→16:54)
[2019-12-17] MEDS: HEPARIN 25,000 UNITS/D5W 250ML 250 ML IV PRN (13:02)
[2019-12-17] MEDS: LABETALOL 100 MG/ 20ML VIAL IVP PRN ×2 (13:02→17:50)
[2019-12-17] MEDS: SENNA 8.8 MG/5 ML UDC GT SCH (21:01)
[2019-12-17] MEDS: DONEPEZIL HCL 5 MG TABLET (ARICEPT) PO SCH (21:01)
[2019-12-18] VITALS (35 sets, daily range): BP systolic 92–167
[2019-12-18] MEDS: ALBUTEROL MDI INHALATION 8 GM INH INH SCH ×4 (01:30→19:40)
[2019-12-18] MEDS: PIPERACILLIN/TAZO 2.25G/DEX-IS 50 ML IV SCH ×3 (05:27→20:33)
[2019-12-18 06:29] LABS: HEMATOCRIT 28.7 % (36-48); HEMOGLOBIN 9.6 g/dL (12.0-16.0); MEAN CORPUSCULAR HEMOGLOBIN 29 pg (27-31); MEAN CORPUSCULAR HGB CONC 33 % (32-36); MEAN CORPUSCULAR VOLUME 85 fL (79.0-98.0); PLATELET COUNT (AUTO) 336 K/uL (130-430); RED BLOOD CELL COUNT(AUTO) 3.37 MIL/uL (4.2-6.2); WHITE BLOOD COUNT (AUTO) 22.4 K/uL (4.8-10.8)
[2019-12-18 06:34] LABS: ANION GAP 14 (5-15); CHLORIDE 97 mmol/L (98-107); CREATININE 5.42 mg/dL (0.55-1.30); GLUCOSE 100 mg/dL (70-99); POTASSIUM 3.4 mmol/L (3.5-5.1); SODIUM SERUM 136 mmol/L (136-145); UREA NITROGEN, BLOOD 52 mg/dL (8-21)
[2019-12-18] MEDS ORDERED: LACTULOSE 20 GM/30 ML UDC PO PRN (08:30)
[2019-12-18 08:50] LABS: BAND % (MANUAL) 5 % (0-6); BASOPHILS % (MANUAL) 0 % (0-2); EOSINOPHILS % (MANUAL) 1 % (0-7); LYMPHOCYTES % (MANUAL) 3 % (20-46); MONOCYTES % (MANUAL) 6 % (0-11)
[2019-12-18] MEDS: DEXAMETHASONE SOD PHOSPHATE 10 MG/ML VIAL IVP SCH (09:06)
[2019-12-18] MEDS: CITALOPRAM HYDROBROMIDE 20 MG TABLET PO SCH (09:07)
[2019-12-18] MEDS: DOCUSATE SODIUM 100 MG/10 ML UDC PO SCH ×2 (09:07→20:32)
[2019-12-18] MEDS: FAMOTIDINE 20 MG TABLET PO SCH (09:07)
[2019-12-18] MEDS: LEVOTHYROXINE SODIUM 0.025 MG TABLET PO SCH (09:07)
[2019-12-18] MEDS: ASCORBIC ACID 500 MG TABLET PO SCH ×2 (09:07→20:33)
[2019-12-18] MEDS: MEMANTINE HCL 5 MG TABLET PO SCH ×2 (09:07→20:33)
[2019-12-18] MEDS: CHOLECALCIFEROL (VITAMIN D3) 2,000 UNIT TABLET PO SCH (09:07)
[2019-12-18] MEDS: PROPOFOL DRIP 100 ML IV PRN ×2 (10:27→20:35)
[2019-12-18] MEDS ORDERED: POTASSIUM CHLORIDE 20 MEQ/PKT PACKET NG ONE (13:45)
[2019-12-18] MEDS ORDERED: POTASSIUM CHLORIDE IV ONE (14:00)
[2019-12-18] MEDS ORDERED: NS IV ONE (14:00)
[2019-12-18] MEDS: METOCLOPRAMIDE HCL 10 MG/2 ML VIAL IVP SCH ×2 (15:18→21:06)
[2019-12-18] MEDS: NACL 0.9% 1,000 ML IV SCH (15:18)
[2019-12-18] MEDS: SENNA 8.8 MG/5 ML UDC GT SCH (20:32)
[2019-12-18] MEDS: DONEPEZIL HCL 5 MG TABLET (ARICEPT) PO SCH (20:33)
[2019-12-19] VITALS (32 sets, daily range): BP systolic 76–181
[2019-12-19] MEDS: ALBUTEROL MDI INHALATION 8 GM INH INH SCH ×4 (01:00→19:35)
[2019-12-19 06:03] LABS: BASOPHILS % (AUTO) 0.1 % (0.0-2.0); EOSINOPHILS # (AUTO) 0.2 K/uL (0.0-0.4); EOSINOPHILS % (AUTO) 0.8 % (0.0-4.0); HEMATOCRIT 26.1 % (36-48); HEMOGLOBIN 8.6 g/dL (12.0-16.0); LYMPHOCYTES # (AUTO) 0.5 K/uL (1.0-5.5); LYMPHOCYTES % (AUTO) 2.6 % (20.5-51.5); MEAN CORPUSCULAR HEMOGLOBIN 28 pg (27-31); MEAN CORPUSCULAR HGB CONC 33 % (32-36); MEAN CORPUSCULAR VOLUME 86 fL (79.0-98.0); MONOCYTES # (AUTO) 0.4 K/uL (0.0-1.0); MONOCYTES % (AUTO) 2.1 % (1.7-9.3); NEUTROPHILS # (AUTO) 19.5 K/uL (1.8-7.7); NEUTROPHILS % (AUTO) 94.4 % (40.0-70.0); PLATELET COUNT (AUTO) 234 K/uL (130-430); RED BLOOD CELL COUNT(AUTO) 3.06 MIL/uL (4.2-6.2); WHITE BLOOD COUNT (AUTO) 20.7 K/uL (4.8-10.8)
[2019-12-19 06:27] LABS: ANION GAP 16 (5-15); CALCIUM 8.4 mg/dL (8.4-11.0); CHLORIDE 92 mmol/L (98-107); CREATININE 6.24 mg/dL (0.55-1.30); GLUCOSE 91 mg/dL (70-99); POTASSIUM 3.6 mmol/L (3.5-5.1); SODIUM SERUM 131 mmol/L (136-145); UREA NITROGEN, BLOOD 62 mg/dL (8-21)
[2019-12-19] MEDS: PIPERACILLIN/TAZO 2.25G/DEX-IS 50 ML IV SCH ×3 (06:59→23:17)
[2019-12-19] MEDS: METOCLOPRAMIDE HCL 10 MG/2 ML VIAL IVP SCH ×3 (06:59→23:18)
[2019-12-19] MEDS: PROPOFOL DRIP 100 ML IV PRN ×2 (07:00→21:54)
[2019-12-19 07:55] LABS: C-REACTIVE PROTEIN QUANT 27.2 mg/dL (0-0.5)
[2019-12-19] MEDS ORDERED: HEPARIN SODIUM,PORCINE 5000 UNITS/ML VIAL ONE ×2 (09:35→09:36)
[2019-12-19] MEDS: DEXAMETHASONE SOD PHOSPHATE 10 MG/ML VIAL IVP SCH (09:51)
[2019-12-19] MEDS: DOCUSATE SODIUM 100 MG/10 ML UDC PO SCH ×2 (09:51→20:08)
[2019-12-19] MEDS: CITALOPRAM HYDROBROMIDE 20 MG TABLET PO SCH (09:51)
[2019-12-19] MEDS: MEMANTINE HCL 5 MG TABLET PO SCH ×2 (09:51→20:08)
[2019-12-19] MEDS: FAMOTIDINE 20 MG TABLET PO SCH (09:51)
[2019-12-19] MEDS: CHOLECALCIFEROL (VITAMIN D3) 2,000 UNIT TABLET PO SCH (09:52)
[2019-12-19] MEDS: LEVOTHYROXINE SODIUM 0.025 MG TABLET PO SCH (09:52)
[2019-12-19] MEDS: ASCORBIC ACID 500 MG TABLET PO SCH ×2 (09:52→20:09)
[2019-12-19] MEDS: NACL 0.9% 1,000 ML IV SCH (09:55)
[2019-12-19] MEDS: LABETALOL 100 MG/ 20ML VIAL IVP PRN (12:36)
[2019-12-19] MEDS: NOREPINEPHRINE BITARTRATE 4 MG in NS 246 ML IV PRN (17:52)
[2019-12-19] MEDS: SENNA 8.8 MG/5 ML UDC GT SCH (20:08)
[2019-12-19] MEDS: DONEPEZIL HCL 5 MG TABLET (ARICEPT) PO SCH (20:09)
[2019-12-20] VITALS (30 sets, daily range): BP systolic 91–180
[2019-12-20] MEDS: ALBUTEROL MDI INHALATION 8 GM INH INH SCH ×4 (01:23→19:30)
[2019-12-20] MEDS: PROPOFOL DRIP 100 ML IV PRN ×4 (03:18→17:25)
[2019-12-20 05:42] LABS: HEMATOCRIT 26.2 % (36-48); HEMOGLOBIN 8.7 g/dL (12.0-16.0); MEAN CORPUSCULAR HEMOGLOBIN 28 pg (27-31); MEAN CORPUSCULAR HGB CONC 33 % (32-36); MEAN CORPUSCULAR VOLUME 86 fL (79.0-98.0); PLATELET COUNT (AUTO) 197 K/uL (130-430); RED BLOOD CELL COUNT(AUTO) 3.06 MIL/uL (4.2-6.2); RED CELL DISTRIBUTION WIDTH 15.4 % (9.0-15.0); WHITE BLOOD COUNT (AUTO) 22.7 K/uL (4.8-10.8)
[2019-12-20 05:45] LABS: ANION GAP 13 (5-15); CALCIUM 8.3 mg/dL (8.4-11.0); CHLORIDE 98 mmol/L (98-107); CREATININE 5.41 mg/dL (0.55-1.30); GLUCOSE 94 mg/dL (70-99); POTASSIUM 3.5 mmol/L (3.5-5.1); SODIUM SERUM 135 mmol/L (136-145); UREA NITROGEN, BLOOD 52 mg/dL (8-21)
[2019-12-20 06:22] LABS: BAND % (MANUAL) 6 % (0-6); BASOPHILS % (MANUAL) 0 % (0-2); EOSINOPHILS % (MANUAL) 0 % (0-7); LYMPHOCYTES % (MANUAL) 2 % (20-46); MONOCYTES % (MANUAL) 1 % (0-11)
[2019-12-20] MEDS: PIPERACILLIN/TAZO 2.25G/DEX-IS 50 ML IV SCH ×3 (06:38→21:06)
[2019-12-20] MEDS: METOCLOPRAMIDE HCL 10 MG/2 ML VIAL IVP SCH ×3 (06:39→21:06)
[2019-12-20] MEDS: NACL 0.9% 1,000 ML IV SCH (06:39)
[2019-12-20 08:08] LABS: HEPATITIS A AB, IgM Negative (Negative); HEPATITIS B CORE AB, IgM Negative (Negative); HEPATITIS B SURFACE AG Negative (Negative)
[2019-12-20] MEDS: MEMANTINE HCL 5 MG TABLET PO SCH ×2 (08:19→20:52)
[2019-12-20] MEDS: LEVOTHYROXINE SODIUM 0.025 MG TABLET PO SCH (08:19)
[2019-12-20] MEDS: FAMOTIDINE 20 MG TABLET PO SCH (08:19)
[2019-12-20] MEDS: DOCUSATE SODIUM 100 MG/10 ML UDC PO SCH ×2 (08:19→20:52)
[2019-12-20] MEDS: CHOLECALCIFEROL (VITAMIN D3) 2,000 UNIT TABLET PO SCH (08:20)
[2019-12-20] MEDS: ASCORBIC ACID 500 MG TABLET PO SCH ×2 (08:20→20:53)
[2019-12-20] MEDS: CITALOPRAM HYDROBROMIDE 20 MG TABLET PO SCH (08:20)
[2019-12-20] MEDS: DEXAMETHASONE SOD PHOSPHATE 10 MG/ML VIAL IVP SCH (08:20)
[2019-12-20] MEDS ORDERED: PROPOFOL DRIP 100 ML IV PRN (19:00)
[2019-12-20] MEDS: LABETALOL 100 MG/ 20ML VIAL IVP PRN (20:50)
[2019-12-20] MEDS: SENNA 8.8 MG/5 ML UDC GT SCH (20:52)
[2019-12-20] MEDS: ENALAPRILAT DIHYDRATE 1.25 MG/ML VIAL IVP PRN (20:52)
[2019-12-20] MEDS: DONEPEZIL HCL 5 MG TABLET (ARICEPT) PO SCH (20:53)
[2019-12-21] VITALS (21 sets, daily range): BP systolic 91–167
[2019-12-21] MEDS: ALBUTEROL MDI INHALATION 8 GM INH INH SCH ×2 (01:14→07:16)
[2019-12-21] MEDS: NACL 0.9% 1,000 ML IV SCH (02:19)
[2019-12-21] MEDS: ENALAPRILAT DIHYDRATE 1.25 MG/ML VIAL IVP PRN (03:12)
[2019-12-21] MEDS: PIPERACILLIN/TAZO 2.25G/DEX-IS 50 ML IV SCH (05:19)
[2019-12-21] MEDS: METOCLOPRAMIDE HCL 10 MG/2 ML VIAL IVP SCH (05:20)
[2019-12-21 05:52] LABS: ANION GAP 16 (5-15); CALCIUM 8.6 mg/dL (8.4-11.0); CHLORIDE 98 mmol/L (98-107); CREATININE 6.86 mg/dL (0.55-1.30); GLUCOSE 103 mg/dL (70-99); POTASSIUM 4.2 mmol/L (3.5-5.1); SODIUM SERUM 136 mmol/L (136-145); UREA NITROGEN, BLOOD 68 mg/dL (8-21)
[2019-12-21 07:08] LABS: BASOPHILS % (AUTO) 0.1 % (0.0-2.0); EOSINOPHILS # (AUTO) 0.1 K/uL (0.0-0.4); EOSINOPHILS % (AUTO) 0.3 % (0.0-4.0); HEMATOCRIT 27.6 % (36-48); HEMOGLOBIN 9.2 g/dL (12.0-16.0); LYMPHOCYTES # (AUTO) 0.5 K/uL (1.0-5.5); LYMPHOCYTES % (AUTO) 2.2 % (20.5-51.5); MEAN CORPUSCULAR HEMOGLOBIN 29 pg (27-31); MEAN CORPUSCULAR HGB CONC 33 % (32-36); MEAN CORPUSCULAR VOLUME 86 fL (79.0-98.0); MONOCYTES # (AUTO) 0.6 K/uL (0.0-1.0); MONOCYTES % (AUTO) 2.7 % (1.7-9.3); NEUTROPHILS # (AUTO) 22.9 K/uL (1.8-7.7); PLATELET COUNT (AUTO) 182 K/uL (130-430); RED CELL DISTRIBUTION WIDTH 14.9 % (9.0-15.0); WHITE BLOOD COUNT (AUTO) 24.1 K/uL (4.8-10.8)
[2019-12-21 07:59] LABS: NEUTROPHILS % (AUTO) 94.7 % (40.0-70.0)
[2019-12-21] MEDS: DEXAMETHASONE SOD PHOSPHATE 10 MG/ML VIAL IVP SCH (08:59)
[2019-12-21] MEDS: FAMOTIDINE 20 MG TABLET PO SCH (08:59)
[2019-12-21] MEDS: MEMANTINE HCL 5 MG TABLET PO SCH (09:00)
[2019-12-21] MEDS: CHOLECALCIFEROL (VITAMIN D3) 2,000 UNIT TABLET PO SCH (09:00)
[2019-12-21] MEDS: CITALOPRAM HYDROBROMIDE 20 MG TABLET PO SCH (09:00)
[2019-12-21] MEDS: ASCORBIC ACID 500 MG TABLET PO SCH (09:00)
[2019-12-21] MEDS: DOCUSATE SODIUM 100 MG/10 ML UDC PO SCH (09:00)
[2019-12-21] MEDS: LEVOTHYROXINE SODIUM 0.025 MG TABLET PO SCH (09:00)
[2019-12-21] MEDS ORDERED: HYDROMORPHONE HCL IN 0.9% NACL 100 ML IV PRN (11:00)
[2019-12-21] MEDS: [UNRECOGNIZED DRUG - OTHER] IV PRN (13:14)
[2019-12-21] MEDS: NS IV PRN (13:14)
== END 2019-12-21 15:17 | disposition expired | DRG 870 ==
LOC: SED 11:34 → STU 14:59 → SIC 15:00
PROVIDERS: ADMIT Internal Medicine; ATTEND Internal Medicine
PROC: 02HV33Z Insertion of Infusion Device into Superior Vena Cava, Percutaneous Approach (ICD-10-PCS; 2019-12-09)
PROC: B548ZZA Ultrasonography of Superior Vena Cava, Guidance (ICD-10-PCS; 2019-12-09)
PROC: XW033E5 Introduction of Remdesivir Anti-infective into Peripheral Vein, Percutaneous Approach, New Technology Group 5 (ICD-10-PCS; 2019-12-10)
PROC: 5A1955Z Respiratory Ventilation, Greater than 96 Consecutive Hours (ICD-10-PCS; principal; 2019-12-11)
PROC: XW033E5 Introduction of Remdesivir Anti-infective into Peripheral Vein, Percutaneous Approach, New Technology Group 5 (ICD-10-PCS; 2019-12-11)
PROC: 0BH17EZ Insertion of Endotracheal Airway into Trachea, Via Natural or Artificial Opening (ICD-10-PCS; 2019-12-11)
PROC: 06HY33Z Insertion of Infusion Device into Lower Vein, Percutaneous Approach (ICD-10-PCS; 2019-12-15)
PROC: 5A1D70Z Performance of Urinary Filtration, Intermittent, Less than 6 Hours Per Day (ICD-10-PCS; 2019-12-15)
PROC: 5A1D70Z Performance of Urinary Filtration, Intermittent, Less than 6 Hours Per Day (ICD-10-PCS; 2019-12-16)
PROC: 5A1D70Z Performance of Urinary Filtration, Intermittent, Less than 6 Hours Per Day (ICD-10-PCS; 2019-12-19)
PROC: 5A1D70Z Performance of Urinary Filtration, Intermittent, Less than 6 Hours Per Day (ICD-10-PCS; 2019-12-21)
DX: A41.89 Other specified sepsis (principal); U07.1 COVID-19; J96.01 Acute respiratory failure with hypoxia; E43 Unspecified severe protein-calorie malnutrition; J12.89 Other viral pneumonia; N17.0 Acute kidney failure with tubular necrosis; E03.9 Hypothyroidism, unspecified; E78.5 Hyperlipidemia, unspecified; F03.90 Unspecified dementia, unspecified severity, without behavioral disturbance, psychotic disturbance, mood disturbance, and anxiety; F32.9 Major depressive disorder, single episode, unspecified; I10 Essential (primary) hypertension; R74.0 Nonspecific elevation of levels of transaminase and lactic acid dehydrogenase [LDH]; D72.810 Lymphocytopenia; Z79.1 Long term (current) use of non-steroidal anti-inflammatories (NSAID); Z68.28 Body mass index [BMI] 28.0-28.9, adult
CPT/HCPCS: 36415; 36600; 71045; 76770; 80048; 80053; 80074; 81000-TC; 82248-TC; 82728; 82803-TC; 83605; 83615-TC; 83735-TC; 83880; 84443-TC; 84484; 85007; 85025; 85027; 85379; 85610-TC; 85730-TC; 86140; 86886; 86900; 86901; 87040-TC; 87070-TC; 87081; 87086; 87205-TC; 90935; 90937; 92610-GN; 93005; 93306; 94002; 94003; 94640; 96365; 96367; 99285; C1751; J0456; J0696; J1100; J1200; J1644; J1650; J1940; J1956; J2060; J2270; J2543; J2704; J2765; J3480; J3490; J7030; J7040; J7050; J7060; J7613; P9017; P9046; U0003-CS